=== PATIENT | female | born 1995 | race African-American/Black ===

== ENCOUNTER 2016-11-09 11:20 | Emergency (ER) | payer OTHER ==
[~2016-11-09] VITALS: Ht 167.6 cm; Wt 100.2 kg
[~2016-11-09 11:20] MED LIST: NAPROSYN500 MG PO
[2016-11-09] MEDS ORDERED: TYLENOL WITH C1 EACH PO (13:16)
[2016-11-09] MEDS ORDERED: SKELAXIN800 MG PO (13:16)
[2016-11-09 13:45] VITALS: BP 146/74
== END 2016-11-09 13:46 | disposition home or self-care (01) ==
LOC: EME 11:20
DX: S16.1XXA Strain of muscle, fascia and tendon at neck level, initial encounter (principal); S20.229A Contusion of unspecified back wall of thorax, initial encounter; X50.1XXA Overexertion from prolonged static or awkward postures, initial encounter; Y99.0 Civilian activity done for income or pay; F17.200 Nicotine dependence, unspecified, uncomplicated
CPT/HCPCS: 72040; 72070; 99281; 99283; J1885

== ENCOUNTER 2017-03-09 02:39 | Emergency (ER) | payer OTHER ==
[~2017-03-09] VITALS: Ht 167.6 cm; Wt 99.6 kg
[~2017-03-09 02:39] MED LIST changes: +SKELAXIN800 MG PO; +TYLENOL WITH C1 EACH PO
[2017-03-09] MEDS ORDERED: KEFLEX500 MG PO (03:13)
[2017-03-09 03:31] VITALS: BP 134/87
== END 2017-03-09 03:37 | disposition home or self-care (01) ==
LOC: EME 02:39
DX: S81.012A Laceration without foreign body, left knee, initial encounter (principal); X58.XXXA Exposure to other specified factors, initial encounter
CPT/HCPCS: 99281; 99284